=== PATIENT | male | born 1955 | race African-American/Black ===

== ENCOUNTER 2019-08-06 00:18 | Inpatient (IN) | payer MEDICARE, MEDICAID ==
[~2019-08-06] VITALS: Ht 175.3 cm; Wt 77.1 kg
[2019-08-06] MEDS ORDERED: SODIUM CHLORIDE 0.9% 1,000 ML IV ONE (00:33)
[2019-08-06] MEDS ORDERED: ONDANSETRON HCL 4MG/2ML INJ IV STA (00:33)
[2019-08-06 01:18] LABS: BASOPHILS % 0.2 % (0.0-2.0); HEMOGLOBIN. 14.3 g/dL (14.0-18.0); LYMPHOCYTES % 7.8 % (20.0-50.0); MEAN CORPUSCULAR HEMOGLOBIN 30.9 pg (28.0-32.0); MEAN CORPUSCULAR VOLUME 90.9 fL (80.0-94.0); MEAN PLATELET VOLUME 9.3 fl (7.4-10.4); MONOCYTES % 8.1 % (2.0-8.0); NEUTROPHILS % 83.9 % (40.0-76.0); PLATELET 133 x1000/uL (130-400); RED BLOOD CELL COUNT 4.62 mill/uL (4.7-6.1); RED CELL DISTRIBUTION WIDTH 14.4 % (11.6-14.6)
[2019-08-06 01:27] LABS: CHLORIDE 104 mEq/L (98-107)
[2019-08-06 01:32] LABS: ETHANOL BLOOD < 10 mg/dL
[2019-08-06] MEDS ORDERED: SODIUM CHLORIDE 0.9% 1000ML BAG (SEPSIS BOLUS) IV ONE (01:45)
[2019-08-06] MEDS ORDERED: PIPERACILLIN/TAZ 3.375G PREMIX 50 ML IV NR (01:45)
[2019-08-06 02:30] LABS: CLARITY URINE CLOUDY (CLEAR); COLOR URINE DARK YELLOW (YELLOW); KETONES URINE 1+ (NEGATIVE); LEUKOCYTE ESTERASE URINE 2+ (NEGATIVE); NITRITE URINE POSITIVE (NEGATIVE); OCCULT BLOOD URINE 2+ (NEGATIVE); PROTEIN URINE 1+ (NEGATIVE); SPECIFIC GRAVITY URINE 1.019 (1.005-1.030)
[2019-08-06 02:42] LABS: *AMPHETAMINES SCREEN URINE NEGATIVE (NEGATIVE); *BARBITURATES SCREEN URINE NEGATIVE (NEGATIVE); *BENZODIAZEPINES SCREEN URINE NEGATIVE (NEGATIVE); *COCAINE SCREEN URINE NEGATIVE (NEGATIVE)
[2019-08-06 02:43] LABS: CANNABINOID URINE SCREEN PRESUMTIVE POSITIVE (NEGATIVE); METHADONE URINE SCREEN NEGATIVE (NEGATIVE); OPIATES URINE SCREEN PRESUMTIVE POSITIVE (NEGATIVE); PHENCYCLIDINE URINE SCREEN NEGATIVE (NEGATIVE)
[2019-08-06] MEDS ORDERED: NALOXONE HCL 0.4 MG/ML 1ML VIAL IV ONE (03:15)
[2019-08-06] MEDS ORDERED: KETOROLAC 15MG/ML VIAL IV PRN (08:30)
[2019-08-06] MEDS ORDERED: ZOLPIDEM TARTRATE 5MG TABLET PO PRN (08:30)
[2019-08-06] MEDS ORDERED: DOCUSATE SODIUM 100MG CAPSULE PO PRN (08:30)
[2019-08-06] MEDS ORDERED: ONDANSETRON HCL 4MG/2ML INJ IV PRN (08:30)
[2019-08-06] MEDS ORDERED: ACETAMINOPHEN 325MG TABLET PO PRN (08:30)
[2019-08-06] MEDS ORDERED: MAGNESIUM/ALUMINUM HYDROXIDE/SIMETHICONE 30ML UDC PO PRN (08:30)
[2019-08-06] MEDS ORDERED: IPRATROPIUM/ALBUTEROL 0.5-3(2.5)MG/3ML NEB NEB PRN (08:30)
[2019-08-06] MEDS ORDERED: GUAIFENESIN 200MG/10ML SUGAR FREE UDC PO PRN (08:30)
[2019-08-06] MEDS ORDERED: NITROGLYCERIN 0.4MG TABLET SL SL PRN (08:30)
[2019-08-06] MEDS ORDERED: CEFTRIAXONE 1 G PREMIX 50 ML IV SCH (09:00)
[2019-08-06 10:15] VITALS: BP 161/95
[2019-08-06] MEDS: ASPIRIN 325MG EC TABLET PO SCH (13:17)
[2019-08-06] MEDS: FAMOTIDINE 20MG TABLET PO SCH ×2 (13:17→20:16)
[2019-08-06] MEDS: ZINC SULFATE 220 MG ( 50 ) CAPSULE PO SCH (13:18)
[2019-08-06] MEDS: ENOXAPARIN 40MG/0.4ML SYR SUBCUT SCH (13:27)
[2019-08-06] MEDS: ASCORBIC ACID 500 MG TABLET PO SCH ×2 (13:31→20:16)
[2019-08-06] MEDS: LEVOFLOXACIN 500MG PREMIX 100 ML IV SCH (13:54)
[2019-08-06] MEDS ORDERED: PNEUMOCOCCAL 23-VAL P-SAC VAC 0.5 ML IM ONE (14:00)
[2019-08-06] MEDS ORDERED: INFLUENZA VIRUS VACCINE(AFLURIA) 0.5ML SYR IM ONE (14:00)
[2019-08-06] MEDS: CEFTRIAXONE 1,000 MG in DEXTROSE 5% WATER 50 ML IV SCH (14:54)
[2019-08-06 16:00] VITALS: BP 164/97
[2019-08-06 16:05] LABS: CREATINE KINASE 141 IU/L (39-308)
[2019-08-06 16:06] LABS: CREATINE KINASE MB FRACTION 1.5 ng/mL (0.5-3.6)
[2019-08-06] MEDS ORDERED: POTASSIUM CHLORIDE 20MEQ/PACKET PO NR (19:30)
[2019-08-06 20:00] VITALS: BP 150/97
[2019-08-06] MEDS ORDERED: KCL 20MEQ/100ML PREMIX 100 ML IV NR (21:00)
[2019-08-07] VITALS: BP 156/95
[2019-08-07 00:43] LABS: CREATINE KINASE 122 IU/L (39-308)
[2019-08-07 00:44] LABS: CREATINE KINASE MB FRACTION 1.4 ng/mL (0.5-3.6)
[2019-08-07 04:00] VITALS: BP 152/90
[2019-08-07 08:00] VITALS: BP 162/100
[2019-08-07] MEDS: ASPIRIN 325MG EC TABLET PO SCH (09:23)
[2019-08-07] MEDS: CLONIDINE 0.1MG TABLET PO PRN (09:23)
[2019-08-07] MEDS: FAMOTIDINE 20MG TABLET PO SCH ×2 (09:29→21:23)
[2019-08-07] MEDS: ASCORBIC ACID 500 MG TABLET PO SCH ×2 (09:29→21:23)
[2019-08-07] MEDS: ZINC SULFATE 220 MG ( 50 ) CAPSULE PO SCH (09:30)
[2019-08-07] MEDS: ENOXAPARIN 40MG/0.4ML SYR SUBCUT SCH (11:18)
[2019-08-07 12:00] VITALS: BP 176/115
[2019-08-07] MEDS: CEFTRIAXONE 1,000 MG in DEXTROSE 5% WATER 50 ML IV SCH (12:32)
[2019-08-07] MEDS: LEVOFLOXACIN 500MG PREMIX 100 ML IV SCH (13:17)
[2019-08-07 13:19] LABS: CHLORIDE 108 mEq/L (98-107)
[2019-08-07 16:00] VITALS: BP 180/103
[2019-08-07 20:00] VITALS: BP 145/98
[2019-08-08] VITALS: BP 151/98
[2019-08-08 04:00] VITALS: BP 168/112
[2019-08-08] MEDS: CLONIDINE 0.1MG TABLET PO PRN ×3 (05:44→21:16)
[2019-08-08 08:00] VITALS: BP 149/62
[2019-08-08] MEDS: ASCORBIC ACID 500 MG TABLET PO SCH ×2 (09:33→21:16)
[2019-08-08] MEDS: ASPIRIN 325MG EC TABLET PO SCH (09:33)
[2019-08-08] MEDS: FAMOTIDINE 20MG TABLET PO SCH ×2 (09:33→21:16)
[2019-08-08] MEDS: ZINC SULFATE 220 MG ( 50 ) CAPSULE PO SCH (09:33)
[2019-08-08] MEDS: ENOXAPARIN 40MG/0.4ML SYR SUBCUT SCH (09:34)
[2019-08-08] MEDS: CEFTRIAXONE 1,000 MG in DEXTROSE 5% WATER 50 ML IV SCH (11:43)
[2019-08-08] MEDS: AMLODIPINE 10MG TABLET PO SCH (13:14)
[2019-08-08 13:30] VITALS: BP 209/116
[2019-08-08] MEDS: LEVOFLOXACIN 500MG PREMIX 100 ML IV SCH (14:05)
[2019-08-08 16:52] VITALS: BP 156/58
[2019-08-08 20:00] VITALS: BP 172/100
[2019-08-09] VITALS: BP 146/89
[2019-08-09 04:00] VITALS: BP 162/106
[2019-08-09] MEDS: CLONIDINE 0.1MG TABLET PO PRN (05:30)
[2019-08-09 08:00] VITALS: BP 170/80
[2019-08-09] MEDS: ZINC SULFATE 220 MG ( 50 ) CAPSULE PO SCH (09:52)
[2019-08-09] MEDS: FAMOTIDINE 20MG TABLET PO SCH (09:52)
[2019-08-09] MEDS: AMLODIPINE 10MG TABLET PO SCH (09:52)
[2019-08-09] MEDS: ASCORBIC ACID 500 MG TABLET PO SCH (09:52)
[2019-08-09] MEDS: ASPIRIN 325MG EC TABLET PO SCH (09:53)
[2019-08-09] MEDS ORDERED: LOSARTAN POTASSIUM 50 MG TABLET PO SCH (10:00)
[2019-08-09] MEDS: ENOXAPARIN 40MG/0.4ML SYR SUBCUT SCH (11:00)
[2019-08-09 12:00] VITALS: BP 161/95
[2019-08-09] MEDS: CEFTRIAXONE 1,000 MG in DEXTROSE 5% WATER 50 ML IV SCH (12:00)
[2019-08-09] MEDS: LEVOFLOXACIN 500MG PREMIX 100 ML IV SCH (13:00)
[2019-08-09 13:45] VITALS: BP 129/72
== END 2019-08-09 14:15 | disposition home or self-care (01) | DRG 720 ==
LOC: ER 00:18 → EDBEDREQ 01:52 → 7WST 05:03 → EDBEDREQTM 05:06 → EDBEDREQ 05:06 → EDBEDREQSVC 05:06 → ENRESERV 07:06 → CANRESERV 07:06 → SUPCPDRO 07:49 → ENRESERV 08:49
PROVIDERS: ADMIT Internal Medicine; ATTEND Internal Medicine
DX: A41.50 Gram-negative sepsis, unspecified (principal); G92 Toxic encephalopathy; E83.51 Hypocalcemia; E44.1 Mild protein-calorie malnutrition; E87.1 Hypo-osmolality and hyponatremia; E87.6 Hypokalemia; I10 Essential (primary) hypertension; R65.20 Severe sepsis without septic shock; N39.0 Urinary tract infection, site not specified; Z68.25 Body mass index [BMI] 25.0-25.9, adult
CPT/HCPCS: 36415; 71045; 80048; 80061; 80305; 80307; 80320; 80329; 81003; 82140; 82550; 82553; 82962; 83036; 83605; 83735; 84484; 87077; 87186; 90686; 90732; 93005; 93970; 96365; 99291; J0696; J1650; J1956; J2310; J2405; J2543; J3480; J7030; J7060; G0480